=== PATIENT | male | born 1950 | race Two or more races ===

== ENCOUNTER 2019-12-20 12:39 | Emergency (ER) | payer OTHER ==
[~2019-12-20] VITALS: Ht 175.3 cm; Wt 113.4 kg
[2019-12-20] MEDS ORDERED: COZAAR50 MG (13:20)
[2019-12-20] MEDS ORDERED: SIMVASTATIN5 MG (13:20)
[2019-12-20] MEDS ORDERED: FOLIC ACID0.8 M1 (13:20)
[2019-12-20] MEDS ORDERED: ZYLOPRIM100 M1 (13:20)
[2019-12-20] MEDS ORDERED: MEDROLPACK PO (17:02)
[2019-12-20] MEDS ORDERED: NORFLEX100MG PO (17:02)
== END 2019-12-20 17:39 | disposition home or self-care (01) ==
LOC: ER 12:39
DX: M79.641 Pain in right hand (principal); Z20.828 Contact with and (suspected) exposure to other viral communicable diseases

== ENCOUNTER → 2022-01-19 | Emergency (ER) | payer OTHER ==
[~2022-01-19] VITALS: Ht 175.3 cm; Wt 109.3 kg
[~2022-01-19] MED LIST: COZAAR50 MG; FOLIC ACID0.8 M1; MECLIZINE HCL12.5 MG PO; MEDROLPACK PO; NORFLEX100MG PO; SIMVASTATIN5 MG; ZYLOPRIM100 M1
== END | disposition home or self-care (01) ==
LOC: ER 11:37
DX: R42 Dizziness and giddiness (principal); M19.90 Unspecified osteoarthritis, unspecified site; Z88.6 Allergy status to analgesic agent

== ENCOUNTER 2022-02-05 10:43 | Outpatient (CLI) | payer OTHER | END 2022-02-05 10:44 | disposition home or self-care (01) | LOC: LAB 10:43 | PROVIDERS: ATTEND Ophthalmology | DX: I10 Essential (primary) hypertension (principal); I11.9 Hypertensive heart disease without heart failure ==

== ENCOUNTER 2022-02-05 11:16 | Outpatient (CLI) | payer OTHER | END 2022-02-05 13:10 | disposition home or self-care (01) | LOC: RAD 11:16 | PROVIDERS: ATTEND Ophthalmology | DX: Z98.42 Cataract extraction status, left eye (principal); H25.012 Cortical age-related cataract, left eye ==